=== PATIENT | female | born 1935 | race Caucasian/White ===

== ENCOUNTER → 2017-08-05 | Emergency (ER) | payer OTHER ==
[~2017-08-05] VITALS: Ht 157.5 cm; Wt 80.3 kg
[~2017-08-05] MED LIST: CALAN SR120 MG PO; CARVEDILOL12.5 MG PO; CATAPRES0.2 MG PO; COZAAR50 MG PO; HUMULIN 70/30 V10 ML SQ; SYNTHROID75 MCG PO
== END | disposition home or self-care (01) ==
LOC: ER 13:32
DX: N39.0 Urinary tract infection, site not specified (principal); I10 Essential (primary) hypertension; B96.1 Klebsiella pneumoniae [K. pneumoniae] as the cause of diseases classified elsewhere